=== PATIENT | male | born 1965 | race Two or more races ===

== ENCOUNTER → 2023-10-06 | Outpatient (CLI) | payer MEDICAID | END | disposition home or self-care (01) | LOC: LAB 08:07 | PROVIDERS: ATTEND Student in an Organized Health Care Education/Training Program | DX: I51.89 Other ill-defined heart diseases (principal); I51.7 Cardiomegaly; I50.9 Heart failure, unspecified | CPT/HCPCS: 93306 ==

== ENCOUNTER → 2023-11-10 | Outpatient (CLI) | payer MEDICAID ==
[~2023-11-10] VITALS: Ht 180.3 cm; Wt 102.1 kg
[2023-11-10] MEDS: ADENOSINE 86 MG in GIVE UN-DILUTED 0 ML IV STA (10:21)
== END | disposition home or self-care (01) ==
LOC: XY 08:48
PROVIDERS: ATTEND Student in an Organized Health Care Education/Training Program
DX: I44.7 Left bundle-branch block, unspecified (principal); I11.0 Hypertensive heart disease with heart failure; I50.9 Heart failure, unspecified; E11.65 Type 2 diabetes mellitus with hyperglycemia; E78.5 Hyperlipidemia, unspecified
CPT/HCPCS: 78452; 93017; A9500; J0153